=== PATIENT | female | born 1960 | race Caucasian/White ===

== ENCOUNTER 2019-04-25 09:59 | Day surgery (SDC) | payer BC ==
[~2019-04-25] VITALS: Ht 152.4 cm; Wt 73.0 kg
[2019-04-25 10:55] VITALS: Ht 152.4 cm; Wt 73.0 kg
[2019-04-25 11:56] VITALS: BP 148/67; PULSE 63; RESP 20
[2019-04-25 11:58] VITALS: BP 148/67; PULSE 61; RESP 20
[2019-04-25] MEDS ORDERED: FENTAnyl 50 MCG/ML VIAL ONE (12:39)
[2019-04-25] MEDS ORDERED: MIDAZOLAM 1 MG/ML 2 ML INJ ONE ×2 (12:39)
== END 2019-04-25 14:17 | disposition home or self-care (01) ==
LOC: GIL 09:59
PROVIDERS: ATTEND Internal Medicine Gastroenterology
DX: Z12.11 Encounter for screening for malignant neoplasm of colon (principal); K64.8 Other hemorrhoids
CPT/HCPCS: 45378; J2250; J3010